=== PATIENT | female | born 1975 | race Two or more races ===

== ENCOUNTER 2023-02-18 11:53 | Emergency (ER) | payer MEDICAID, OTHER ==
[~2023-02-18] VITALS: Ht 160 cm; Wt 75.0 kg
[2023-02-18] MEDS ORDERED: PANTOPRAZOLE 40 MG/10 ML VIAL INJ IV ONE (12:30)
[2023-02-18] MEDS ORDERED: ONDANSETRON HCL 4 MG/2 ML VIAL IV ONE ×2 (12:30→21:45)
[2023-02-18] MEDS ORDERED: SODIUM CHLORIDE 0.9% 500 ML IVB ONE (12:30)
[2023-02-18 12:54] LABS: Basophils # (auto) 0.1 10 ^3/uL (0-0.2); Basophils % (auto) 0.9 % (0.0-2.0); Eosinophils # (auto) 0 10 ^3/uL (0-0.8); Eosinophils % (auto) 0.6 % (0.0-7.0); Hematocrit 43.2 % (36.0-46.0); Hemoglobin 14.4 g/dL (12.2-16.2); Lymphocytes # (auto) 0.7 10 ^3/uL (0.4-5.4); Lymphocytes % (auto) 8.6 % (10.0-50.0); Mean Corpuscular Hgb Conc. 33.4 g/dL (32.0-36.0); Mean Corpuscular Volume 92.8 fL (80.0-100.0); Monocytes # (auto) 0.3 10 ^3/uL (0-1.3); Monocytes % (auto) 4.4 % (0.0-12.0); Neutrophils # (auto) 6.8 10 ^3/uL (1.6-8.6); Neutrophils % (auto) 85.5 % (37.0-80.0); Red Blood Cells 4.65 10^6/uL (4.0-5.20); Red Cell Distribution Width 14.1 % (11.8-14.3)
[2023-02-18 13:13] LABS: Urine Bacteria NONE SEEN /hpf (None Seen); Urine Blood Negative /uL (Negative); Urine Specific Gravity 1.009 (1.001-1.035); Urine WBC <1 /hpf (0 - 5)
[2023-02-18 13:15] LABS: INR 1.06 (0.9-1.15)
[2023-02-18 13:31] LABS: Calcium 9.1 mg/dL (8.5-10.1); Potassium 3.2 mmol/L (3.5-5.1)
[2023-02-18 13:39] LABS: BUN/Creatinine Ratio 15.3 (10.0-20.0)
[2023-02-18] MEDS: MORPHINE SULFATE 4 MG/ML SYR/VIAL IV ONE ×2 (13:51→13:56)
[2023-02-18 14:08] VITALS: RESP 18; O2SAT 98
[2023-02-18] MEDS ORDERED: IOHEXOL 300 MG/ML 100ML BOTTLE IJ ONE (14:58)
[2023-02-18] MEDS ORDERED: MORPHINE SULFATE INJ 2 MG/ml SYRG IV PRN (15:00)
[2023-02-18] MEDS ORDERED: hydrALAZINE HCL 20 MG/ML VL IV PRN (15:00)
[2023-02-18] MEDS ORDERED: ONDANSETRON HCL 4 MG/2 ML VIAL IV PRN (15:00)
[2023-02-18] MEDS ORDERED: NITROGLYCERIN 0.4 MG SL TAB SL PRN (15:00)
[2023-02-18] MEDS ORDERED: DEXTROSE (50%) 50ML SYRG IV PRN (15:00)
[2023-02-18] MEDS ORDERED: LACTATED RINGER'S 1,000 ML IV ONE (15:00)
[2023-02-18] MEDS: HYDROmorphone HCL 2 MG/ML VL/or syr IV PRN ×2 (16:31→22:27)
[2023-02-18] MEDS: LACTATED RINGER'S 1,000 ML IV SCH ×2 (17:24→21:40)
[2023-02-18] MEDS ORDERED: InsuLIN REG 1unit/0.01ml Soln (100units/ml) SC SCH (18:00)
[2023-02-18] MEDS ORDERED: ACCU-CHEK COMFORT CURVE STRIP VI SCH (18:00)
[2023-02-18] MEDS ORDERED: MORPHINE SULFATE 4 MG/ML SYR/VIAL IV ONE (21:45)
[2023-02-18 21:49] VITALS: TEMP 97.3; O2SAT 94
[2023-02-18 22:27] VITALS: BP 134/77; PULSE 92; RESP 18
[2023-02-19] MEDS ORDERED: PANTOPRAZOLE 40 MG/10 ML VIAL INJ IV SCH (10:00)
== END 2023-02-18 22:20 | disposition short-term general hospital (02) ==
LOC: ER 11:53 → TELE 14:53 → UNDOADMIN 14:53 → ER 22:20
DX: R10.84 Generalized abdominal pain (principal); K85.90 Acute pancreatitis without necrosis or infection, unspecified; K80.20 Calculus of gallbladder without cholecystitis without obstruction; E11.9 Type 2 diabetes mellitus without complications; I10 Essential (primary) hypertension; Z98.890 Other specified postprocedural states; Z88.6 Allergy status to analgesic agent
CPT/HCPCS: 36415; 74177; 74181; 76705; 80053; 81001; 81025; 83690; 85025; 85610; 85730; 96361; 96374; 96375; 96376; 99285; C9113; J1170; J1815; J2270; J2405; J7040; Q9967

== ENCOUNTER 2023-03-01 09:36 | Emergency (ER) | payer MEDICAID ==
[~2023-03-01] VITALS: Ht 162.6 cm; Wt 77.3 kg
[2023-03-01 10:01] LABS: Basophils # (auto) 0 10 ^3/uL (0-0.2); Basophils % (auto) 0.5 % (0.0-2.0); Eosinophils # (auto) 0.2 10 ^3/uL (0-0.8); Eosinophils % (auto) 2.7 % (0.0-7.0); Hematocrit 40.6 % (36.0-46.0); Hemoglobin 13.6 g/dL (12.2-16.2); Lymphocytes # (auto) 1.5 10 ^3/uL (0.4-5.4); Lymphocytes % (auto) 19.4 % (10.0-50.0); Mean Corpuscular Hgb Conc. 33.4 g/dL (32.0-36.0); Mean Corpuscular Volume 92.7 fL (80.0-100.0); Monocytes # (auto) 0.4 10 ^3/uL (0-1.3); Monocytes % (auto) 5.7 % (0.0-12.0); Neutrophils # (auto) 5.5 10 ^3/uL (1.6-8.6); Neutrophils % (auto) 71.7 % (37.0-80.0); Nucleated Red Blood Cells % 0.1 %; Red Blood Cells 4.38 10^6/uL (4.0-5.20); Red Cell Distribution Width 14.1 % (11.8-14.3); White Blood Cell 7.7 10^3/uL (4.4-10.8)
[2023-03-01 10:30] LABS: Albumin 3.5 g/dL (3.4-5.0); Calcium 9.1 mg/dL (8.5-10.1); Potassium 4.2 mmol/L (3.5-5.1)
[2023-03-01 10:34] LABS: BUN/Creatinine Ratio 17.8 (10.0-20.0); Bilirubin, Total 0.6 mg/dL (0.2-1.0); Total Protein 7.6 g/dL (6.4-8.2)
[2023-03-01 11:00] VITALS: PULSE 88; RESP 17; O2SAT 93
[2023-03-01] MEDS ORDERED: LORazepam 2MG/ML-1ML VIAL IV ONE (11:15)
[2023-03-01] MEDS ORDERED: SODIUM CHLORIDE 0.9% 1,000 ML IV ONE (11:15)
[2023-03-01] MEDS ORDERED: IOHEXOL 350 MG/ML 100ML IJ ONE (13:52)
[2023-03-01 16:55] VITALS: BP 110/76; PULSE 67; RESP 17; TEMP 97.7; O2SAT 94
== END 2023-03-01 17:01 | disposition home or self-care (01) ==
LOC: ER 09:36 → EDBD 09:36 → ER 17:00
DX: R00.2 Palpitations (principal); F41.9 Anxiety disorder, unspecified; R55 Syncope and collapse; E11.65 Type 2 diabetes mellitus with hyperglycemia; E78.5 Hyperlipidemia, unspecified; I10 Essential (primary) hypertension; Z90.49 Acquired absence of other specified parts of digestive tract; Z88.6 Allergy status to analgesic agent
CPT/HCPCS: 36415; 71045; 71275; 80053; 84484; 85025; 85379; 93005; 96361; 96374; 99285; J2060; J7030; Q9967

== ENCOUNTER 2023-08-22 04:00 | Emergency (ER) | payer MEDICAID ==
[~2023-08-22] VITALS: Ht 160 cm; Wt 76.1 kg
[2023-08-22 05:12] LABS: Urine Bacteria FEW /hpf (None Seen); Urine Blood TRACE /uL (Negative); Urine Clarity Clear (Clear); Urine Color Yellow (Yellow); Urine Protein, UAD Negative (Negative); Urine Specific Gravity 1.003 (1.001-1.035); Urine Urobilinogen Normal (Negative); Urine WBC 83 /hpf (0 - 5); Urine WBC Clumps PRESENT /hpf (None Seen); Urine pH 6.5 (5.0-8.0)
[2023-08-22] MEDS ORDERED: CEPH500C PO (05:12)
[2023-08-22 05:20] VITALS: BP 135/83; PULSE 76; RESP 16; TEMP 97.8; O2SAT 99
== END 2023-08-22 05:47 | disposition home or self-care (01) ==
LOC: ER 04:00
DX: N39.0 Urinary tract infection, site not specified (principal); I10 Essential (primary) hypertension; E11.9 Type 2 diabetes mellitus without complications; E78.5 Hyperlipidemia, unspecified; Z90.49 Acquired absence of other specified parts of digestive tract; Z79.899 Other long term (current) drug therapy; Z88.6 Allergy status to analgesic agent
CPT/HCPCS: 81001